=== PATIENT | female | born 1960 | race Caucasian/White ===

== ENCOUNTER 2023-09-19 14:00 | Outpatient (RCR) | payer OTHER, SELFPAY | END 2023-09-19 23:59 | disposition home or self-care (01) | LOC: RPT 14:00 | PROVIDERS: ATTENDING PHYSICIAN Physician Assistant | DX: M79.602 Pain in left arm (principal); M79.605 Pain in left leg; M25.512 Pain in left shoulder | CPT/HCPCS: 97010; 97110; 97140; 97164 ==

== ENCOUNTER 2023-10-11 09:05 | Outpatient (RCR) | payer OTHER, SELFPAY | END 2023-10-11 23:59 | disposition home or self-care (01) | LOC: RPT 09:05 | PROVIDERS: ATTENDING PHYSICIAN Physician Assistant | DX: M25.512 Pain in left shoulder (principal); Z73.6 Limitation of activities due to disability; M25.552 Pain in left hip; R26.89 Other abnormalities of gait and mobility | CPT/HCPCS: 97010; 97110; 97140 ==

== ENCOUNTER 2023-11-22 09:05 | Outpatient (RCR) | payer OTHER, SELFPAY | END 2023-11-22 23:59 | disposition home or self-care (01) | LOC: RPT 09:05 | PROVIDERS: ATTENDING PHYSICIAN Physician Assistant | DX: M25.512 Pain in left shoulder (principal); Z73.6 Limitation of activities due to disability | CPT/HCPCS: 97010; 97110; 97140 ==

== ENCOUNTER 2023-11-28 08:56 | Outpatient (RCR) | payer OTHER, SELFPAY | END 2023-11-28 10:24 | disposition home or self-care (01) | LOC: RPT 08:56 | PROVIDERS: ATTENDING PHYSICIAN Physician Assistant | DX: M79.605 Pain in left leg (principal); Z73.6 Limitation of activities due to disability; M25.512 Pain in left shoulder | CPT/HCPCS: 97010; 97110 ==

== ENCOUNTER → 2024-06-18 09:02 | Outpatient (REF) | payer OTHER, SELFPAY | LOC: MRI 3T 09:02 | PROVIDERS: ATTENDING PHYSICIAN Orthopaedic Surgery; FAMILY PHYSICIAN Family Medicine | DX: M54.50 Low back pain, unspecified (principal) | CPT/HCPCS: 72148 ==